=== PATIENT | male | born 1995 | race African-American/Black ===

== ENCOUNTER 2020-01-17 09:27 | Emergency (ER) | payer BC ==
[~2020-01-17] VITALS: Ht 162.6 cm; Wt 69.5 kg
[2020-01-17] MEDS ORDERED: ALBU2.5V8 IH (09:55)
[2020-01-17 10:06] VITALS: BP 134/63
--- NOTE | 2020-01-17 10:07 | PHYS DOC ---
Past Medical History Past Medical History: No Pertinent History Past Surgical History: No Surgical History Smoking Status: Former Smoker Alcohol Use: None General Adult EDM: Chief Complaint: COUGH HPI: HPI: Patient is a 24 year old male presenting with chief complaint of shortness of breath and cough. Patient is felt this way for the last couple of days if not longer. He came to the ER today because he was notified by his work that someone on the previous shift had positive COVID testing they wiped everything down but he was worried that he might of picked it up because it is how he has been feeling. No definite fever he says is having a little bit of trouble smelling. He does have a history of "occupational asthma" he tells me. Other past medical history none medications none allergies none social history denies smoking alcohol or drugs review of systems otherwise negative except as noted in HPI. Review of Systems: Review of Systems: Constitutional: Denies fever or chills. [] Eyes: Denies change in visual acuity. [] HENT: Heart Score: Risk Factors: Risk Factors: DM, Current or recent (<one month) smoker, HTN, HLP, family history of CAD, obesity. Risk Scores: Score 0 - 3: 2.5% MACE over next 6 weeks - Discharge Home Score 4 - 6: 20.3% MACE over next 6 weeks - Admit for Clinical Observation Score 7 - 10: 72.7% MACE over next 6 weeks - Early Invasive Strategies Allergies: Allergies: Allergies Coded Allergies Type Severity Reaction Last Updated Verified No Known Drug Allergies 01/17/20 No Physical Exam: PE: Constitutional: Well developed, well nourished, no acute distress, non-toxic appearance. [] HENT: Normocephalic, atraumatic, bilateral external ears normal, oropharynx moist, no oral exudates, nose normal. [] Eyes: PERRLA, EOMI, conjunctiva normal, no discharge. [] Neck: Normal range of motion, no tenderness, supple, no stridor. [] Cardiovascular:Heart rate regular rhythm, no murmur [] Lungs & Thorax: Bilateral breath sounds clear to auscultation [] Abdomen: Bowel sounds normal, soft, no tenderness, no masses, no pulsatile masses. [] Skin: Warm, dry, no erythema, no rash. [] Back: No tenderness, no CVA tenderness. [] Extremities: No tenderness, no cyanosis, no clubbing, ROM intact, no edema. [] Neurologic: Alert and oriented X 3, normal motor function, normal sensory function, no focal deficits noted. [] Psychologic: Affect normal, judgement normal, mood normal. [] Current Patient Data: Vital Signs: Vital Signs Date Time Temp Pulse Resp B/P (MAP) Pulse Ox O2 Delivery O2 Flow Rate FiO2 01/17/20 09:32 98.7 49 19 129/58 (81) 100 Room Air 98.7 EKG: EKG: [] Radiology/Procedures: Radiology/Procedures: My read negative acute [] Impression: Indication: Reason: SOB / Spl. Instructions: / History: Comparison: None available Findings: There is no focal consolidation. There is no pleural effusion or pneumothorax. The cardiomediastinal silhouette and pulmonary vasculature are within normal limits. No acute osseous abnormalities are seen. Impression: No evidence of acute cardiopulmonary process. Electronically signed by: Misbah Montgomery MD (01/17/2020 10:07 AM) [id number] DICTATED and SIGNED BY: MISBAH MONTGOMERY MD DATE: 01/17/20 1007 Course & Med Decision Making: Course & Med Decision Making Pertinent Labs and Imaging studies reviewed. (See chart for details) [] Well-appearing 24-year-old male with cough and shortness of breath with normal x-ray normal oxygenation COVID test was ordered patient was advised and the importance of social disjoint distancing albuterol inhaler was provided patient looked good Patient agreeable to the plan Dragon Disclaimer: Dragkelsey Disclaimer: This electronic medical record was generated, in whole or in part, using a voice recognition dictation system. Departure Departure Impression: Primary Impression: Cough Disposition: 01 HOME, SELF-CARE Condition: STABLE Patient Instructions: Cough, Adult, [id number] Additional Instructions: YOUR COVID TEST IS PENDING. WEAR MASK MAINTAIN SOCIAL DISTANCING AT ALL TIMES. Scripts Albuterol Sulfate (Proair Hfa) 8.5 Gm Hfa.aer.ad 2 PUFF IH PRN Q4-6HRS PRN for wheezing for 21 Days, #1 INHALER 0 Refills Prov: RENY RIVERA MD 01/17/20 Justicifation of Admission Dx: Justifications for Admission: Justification of Admission Dx: N/A RENY RIVERA MD Jan 17, 2020 10:07
--- NOTE | 2020-01-18 16:38 | NUR ---
IP: Notified pt of COVID negative results.
== END 2020-01-17 10:21 | disposition home or self-care (01) ==
LOC: ER 09:27
DX: R05 Cough (principal); Z20.828 Contact with and (suspected) exposure to other viral communicable diseases; R06.02 Shortness of breath; Z87.891 Personal history of nicotine dependence
CPT/HCPCS: 71045; 99284; U0003